=== PATIENT | male | born 2000 | race Caucasian/White ===

== ENCOUNTER 2019-07-27 18:38 | Emergency (ER) | payer SELFPAY ==
[~2019-07-27] VITALS: Ht 172.7 cm; Wt 79.4 kg
--- NOTE | 2019-07-27 18:43 | NUR ---
Patient ambulated to bed 2. RN evaluating patient at bedside.
--- NOTE | 2019-07-27 18:55 | NUR ---
19 Y/O MALE PRESENTING WITH C/C OF H/A, COUGH, SORE THROAT, VOMITING X3 DAYS. PER PATIENT NOT UP TO DATE WITH FLU SHOT AND FAMILY MEMBERS ARE SICK AT HOME. BILATERAL LUNG SOUNDS CLEAR. PER PT NKA. NO MEDICAL HX. NO RX. DENIES DIARRHEA. FAMILY AT BEDSIDE. SIDE RAIL X1.
[2019-07-27 18:56] VITALS: BP 123/73
--- NOTE | 2019-07-27 19:05 | NUR ---
REPORT GIVEN TO MONALISA WAKEFIELD
[2019-07-27] MEDS: KETOROLAC 60 MG/2 ML VIAL IM ONE (19:15)
[2019-07-27 19:55] VITALS: BP 118/70
--- NOTE | 2019-07-27 19:56 | NUR ---
Patient discharged with v/s stable. Written and verbal after care instructions given and explained. Patient alert, oriented and verbalized understanding of instructions. Ambulatory with steady gait. All questions addressed prior to discharge. ID band removed. Patient advised to follow up with PMD. Rx of ACETAMINOPHEN, IBUPROFEN, PROMETHAZINE DM given. Patient educated on indication of medication including possible reaction and side effects. Opportunity to ask questions provided and answered.
== END 2019-07-27 19:56 | disposition home or self-care (01) ==
LOC: MED 18:38
DX: B34.9 Viral infection, unspecified (principal)
CPT/HCPCS: 96372; 99283; J1885

== ENCOUNTER 2020-08-16 21:26 | Emergency (ER) | payer SELFPAY ==
[~2020-08-16] VITALS: Ht 170.2 cm; Wt 115.7 kg
[2020-08-16 21:41] VITALS: BP 155/85
--- NOTE | 2020-08-16 22:31 | NUR ---
PT EVALUATED AND DISCHARGED BY KATYA HOGUE. ALL RELEVANT TEACHING AND INSTRUCTIONS GIVEN TO BY DR. HOGUE. PT RECEIVED RX OF DEXAMETHASONE.
== END 2020-08-16 22:31 | disposition home or self-care (01) ==
LOC: MED 21:26
DX: R50.9 Fever, unspecified (principal); Z20.828 Contact with and (suspected) exposure to other viral communicable diseases
CPT/HCPCS: 99283